=== PATIENT | male | born 1975 | race American Indian/Alaskan Native ===

== ENCOUNTER 2018-10-22 16:41 | Emergency (ER) | payer OTHER ==
[2018-10-22 17:47] VITALS: BP 143/100
--- NOTE | 2018-10-22 17:47 | Emergency Department Report ---
Chief Complaint: Back Pain/Injury Stated Complaint: BACK SPASM Time Seen by Provider: 10/22/18 17:43 - HPI History of Present Illness: pt states he is having back spasms that began 2 days ago he states he has "lower back pain in the middle" no fall, injury, trauma no numbness, weakness, bowel/bladder incontinence never had before pt has HTN, has not taken blood pressure medication in a year last saw PCP a year ago no daily meds no allergies to any medications non smoker occ drinker no drug use MSE screening note: Focused history performed Due to findings the following was ordered: XR L-spine ED Disposition for MSE Condition: Stable
--- NOTE | 2018-10-22 19:31 | XRay Report ---
PROCEDURE: XR SPINE LUMBOSACRAL 2-3V TECHNIQUE: Lumbar spine radiographs, two views. HISTORY: low back pain COMPARISONS: None . FINDINGS: Alignment: Normal . Vertebral body heights/Disk spaces: Normal . Fracture(s): None . Facets: Normal . Bone mineralization: Normal . IMPRESSION: Normal Examination . This document is electronically signed by Josafat Teran MD., October 22 2018 07:30:07 PM ET
[2018-10-22] MEDS ORDERED: TORADOL IM ONE (21:52)
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
== END 2018-10-22 23:05 | disposition home or self-care (01) ==
LOC: ED 16:41
DX: S39.012A Strain of muscle, fascia and tendon of lower back, initial encounter (principal); X58.XXXA Exposure to other specified factors, initial encounter; Y93.89 Activity, other specified; Y92.89 Other specified places as the place of occurrence of the external cause; Y99.8 Other external cause status
CPT/HCPCS: 72100; 96372; 99283; J1885

== ENCOUNTER 2020-09-12 13:29 | Emergency (ER) | payer SELFPAY ==
--- NOTE | 2020-09-12 13:45 | Event Note ---
ED Screening Note Date of service: 09/12/20 Time: 13:45 ED Screening Note: Pt c/o right-sided groin pain and testicular pain x4 days. He admits to recent heavy lifting He denies any dysuria/hematuria, difficulty urinating, or penile discharge No abdominal pain noted on exam This initial assessment/diagnostic orders/clinical plan/treatment(s) is/are subject to change based on patients health status, clinical progression and re- assessment by fellow clinical providers in the ED. Further treatment and workup at subsequent clinical providers discretion. Patient/guardian urged not to elope from the ED as their condition may be serious if not clinically assessed and managed. Initial orders include: Ultrasound UA
[2020-09-12 14:15] LABS: Bilirubin,Urine NEG (Negative); Blood,Urine NEG (Negative); Color,Urine Yellow (Yellow); Mucus,Urine FEW /HPF; Protein,Urine <15 mg/dL mg/dL (Negative); RBC,Urine < 1.0 /HPF (0.0-6.0); Urobilinogen,Urine < 2.0 mg/dL (<2.0); WBC,Urine < 1.0 /HPF (0.0-6.0)
--- NOTE | 2020-09-12 14:56 | Ultrasound Report ---
Scrotal Ultrasound HISTORY: right groin and testicular pain x 5 days. TECHNIQUE: Grayscale and color imaging performed. COMPARISON: None FINDINGS: Testicles are both normal in size and appearance with preserved blood flow.. Tiny bilateral epididymal head cysts are present. No significant hydrocele or varicocele. IMPRESSION: Tiny bilateral epididymal head cysts. Otherwise unremarkable exam. Signer Name: Dick Craven MD Signed: 09/12/2020 2:52 PM Workstation Name: [id number]
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
[2020-09-12 16:12] VITALS: BP 155/111
== END 2020-09-12 17:02 | disposition home or self-care (01) ==
LOC: ED 13:29
DX: R10.31 Right lower quadrant pain (principal); R03.0 Elevated blood-pressure reading, without diagnosis of hypertension; Z79.899 Other long term (current) drug therapy; Z98.890 Other specified postprocedural states
CPT/HCPCS: 81001; 93975